=== PATIENT | female | born 1955 | race Caucasian/White ===

== ENCOUNTER 2021-02-09 18:56 | Emergency (ER) | payer OTHER ==
[~2021-02-09 18:56] MED LIST: ANORO ELLIPTA1 EACH INH; DULERA 100 MCG8.8 GM INH; LEXAPRO20 MG PO; MEDROL DOSEPAK 24 MG PO; OMNICEF 300 MG300 MG PO; PERCOCET 10-321 EACH PO; PERCOCET 7.5-31 EACH PO; PROTONIX40 MG PO; PROVENTIL HFA 61 INH INH; VENTOLIN/PROVE0.5 ML INH
[2021-02-09 19:57] LABS: HEMOGLOBIN 14.4 gm/dl (12.3-15.3); RED BLOOD COUNT 4.98 M/UL (4.00-5.10); WHITE BLOOD COUNT 7.1 K/UL (4.5-11.0)
[2021-02-09 20:16] LABS: BUN/CREATININE RATIO 15 (0-10)
[2021-02-09] MEDS ORDERED: OMNICEF 300 MG300 MG PO (22:37)
[2021-02-09] MEDS ORDERED: BENTYL 20MG TAB20 MG PO (22:37)
[2021-02-09] MEDS ORDERED: ZOFRAN ODT 4 MG4 MG PO (22:37)
== END 2021-02-09 23:26 | disposition home or self-care (01) ==
LOC: ER1 18:56
PROVIDERS: Physician Assistant
DX: N39.0 Urinary tract infection, site not specified (principal); J44.9 Chronic obstructive pulmonary disease, unspecified; F17.210 Nicotine dependence, cigarettes, uncomplicated; Z88.8 Allergy status to other drugs, medicaments and biological substances
CPT/HCPCS: 80053; 81001; 83690; 85025; 87086; 96374; 96375; 99284; J0696; J1885; J2405; J7030; Q9967